=== PATIENT | female | born 1940 | race Caucasian/White ===

== ENCOUNTER 2017-05-16 10:17 | Emergency (ER) | payer MEDICARE, OTHER, BC ==
[2017-05-16 11:01] VITALS: BP 159/98
--- NOTE | 2017-05-16 11:22 | EDM.PDOC ---
ED HPI GENERAL MEDICAL PROBLEM - General Chief Complaint: Head Injury Stated Complaint: FELL, HEAD INJURY, VOMITING Time Seen by Provider: 05/16/17 10:45 Source of Information: Reports: Patient, Family History Limitations: Reports: No Limitations - History of Present Illness INITIAL COMMENTS - FREE TEXT/NARRATIVE: 77-year-old female walked out onto her back porch and there was a very thin sheet of ice that was on the porch she was unaware of and she lost her footing and slipped backwards falling onto her lower back and she whiplashed her head off of the surface of the deck. She had no loss of consciousness. Her daughter saw it happen so went out to help her and she also fell. She then assisted her mom up and after she got into the house she became somewhat pale, dizzy, lightheaded and confused and had some repetitive questioning. She has no significant headache but has some nausea. She is much improved but the daughter wanted her checked out. She complains of some soreness on the occiput of the scalp and nausea but no other complaints. Onset: Sudden Duration: Hour(s): (Within the last 2 hours) Severity: Moderate Associated Symptoms: Reports: Nausea/Vomiting, Other (Dizziness and mild confusion) - Related Data Allergies Allergy/AdvReac Type Severity Reaction Status Date / Time propoxyphene HCl Allergy Nausea Verified 02/21/16 12:10 [From [place]] Home Meds: Home Meds Aspirin [Low Dose Aspirin EC] 81 mg PO DAILY 06/04/15 [History] Docusate Sodium 100 mg PO DAILY 06/04/15 [History] L.acidoph,Paracasei, B.lactis [Probiotic] 1 each PO DAILY 06/04/15 [History] Levothyroxine Sodium [Synthroid] 100 mcg PO DAILY 06/04/15 [History] Lisinopril 10 mg PO DAILY 06/04/15 [History] Multivitamin with Minerals [Multiple Vitamin] 1 tab PO DAILY 06/04/15 [History] Omeprazole 20 mg PO DAILY 06/04/15 [History] Oxyquinoline/Sod.Lauryl Sulf [[place] Jelly] 1 applic VAG .TWICE WEEKLY [History] Polyethylene Glycol 3350 [MiraLAX] 17 gm PO DAILY PRN 06/04/15 [History] Propylene Glycol/Peg 400 [Systane 0.3-0.4% Eye Drops] 1 drop EYEBOTH DAILY PRN 06/04/15 [History] Simvastatin [Zocor] 20 mg PO BEDTIME 06/04/15 [History] Persavison 2 2 tab PO DAILY 06/05/15 [History] Psyllium with Sucrose [Metamucil] 1 each PO DAILY 06/05/15 [History] Past Medical History HEENT History: Reports: Cataract, Macular Degeneration Cardiovascular History: Reports: High Cholesterol, Hypertension Gastrointestinal History: Reports: Other (See Below) Other Gastrointestinal History: exploratory lap Genitourinary History: Reports: Other (See Below) Other Genitourinary History: elevated kidney functions, renal tumor benign CAT BREEDER History: Reports: Other (See Below) Other OB/BYN History: Pessery Endocrine/Metabolic History: Reports: Hyperthyroidism Hematologic History: Reports: Blood Transfusion(s) - Infectious Disease History Infectious Disease History: Reports: Chicken Pox, Measles, Mumps - Past Surgical History GI Surgical History: Reports: Other (See Below) Other GI Surgeries/Procedures: exploritory lap Female Surgical History: Reports: Other (See Below) Other Female Surgeries/Procedures: cyst removed from kidney Endocrine Surgical History: Reports: Thyroidectomy Social & Family History - Tobacco Use Smoking Status *Q: Never Smoker Second Hand Smoke Exposure: No - Caffeine Use Caffeine Use: Reports: None - Recreational Drug Use Recreational Drug Use: No ED ROS GENERAL - Review of Systems Review Of Systems: See Below Constitutional: Reports: Malaise. Denies: Fever, Chills HEENT: Reports: No Symptoms Respiratory: Denies: Shortness of Breath, Cough Cardiovascular: Denies: Chest Pain GI/Abdominal: Reports: Nausea, Vomiting. Denies: Abdominal Pain : Reports: No Symptoms Musculoskeletal: Reports: Other (Some mild buttock discomfort from where she fell). Denies: Neck Pain, Back Pain Skin: Reports: No Symptoms Neurological: Reports: Dizziness. Denies: Headache ED EXAM, HEAD INJURY - Physical Exam Exam: See Below Exam Limited By: No Limitations General Appearance: Alert, No Apparent Distress Head: Other (Slight swelling and redness is present on the occiput of the scalp. No significant bruising or laceration, no abrasion. It is tender to palpation) Eyes: Bilateral Eye: EOMI, PERRL Throat/Mouth: Normal Inspection Neck: Non-Tender, Full Range of Motion Respiratory: No Respiratory Distress Neurologic: No Motor/Sensory Deficits, Alert, Normal Mood/Affect, Oriented x 3 Skin: Other (Slight erythema to the posterior scalp no other findings) - Elder Coma Score Best Eye Response ([place]): (4) Open Spontaneously Best Verbal Response (Elder): (5) Oriented Best Motor Response (Elder): (6) Obeys Commands Course - Vital Signs Last Recorded V/S: Last Vital Signs Temp 95.5 F 05/16/17 10:30 Pulse 82 05/16/17 10:30 Resp 18 05/16/17 10:30 BP 159/98 H 05/16/17 10:30 Pulse Ox 97 05/16/17 10:30 - Orders/Labs/Meds Orders: Active Orders 24 hr Category Date Time Status Head wo Cont [CT] Stat Exams 05/16/17 10:46 Taken - Re-Assessments/Exams Free Text/Narrative Re-Assessment/Exam: 05/16/17 11:22 Because of the obvious confusion and repetitive questioning, and the persistent nausea and vomiting along with a significant head injury a 77-year-old, a CT of the head without contrast was obtained. 05/16/17 11:[address] was normal. Patient was still somewhat nauseous so she was discharged with 5 sublingual Zofran doses to take as needed every 4-6 hours for persistent nausea. She'll return if she develops neurologic changes or deficits which we discussed. She can take Tylenol or ibuprofen as needed for headache or musculoskeletal complaints. Departure - Departure Time of Disposition: 12:09 Disposition: Home, Self-Care 01 Condition: Good Clinical Impression: Concussion with no loss of consciousness - Discharge Information Instructions: Head Injury, Adult, [id number] Referrals: Marcial Owens PA-C [Primary Care Provider] - Forms: ED Department Discharge Care Plan Goals: Use Zofran as needed for persistent nausea. Ice to sore areas for the next 1-2 days may help, along with Tylenol and ibuprofen or naproxen for discomfort. Recheck anytime if worsening or concerns as discussed. - My Orders Last 24 Hours: My Active Orders 05/16/17 10:46 Head wo Cont [CT] Stat - Assessment/Plan Last 24 Hours: My Active Orders 05/16/17 10:46 Head wo Cont [CT] Stat
== END 2017-05-16 12:09 | disposition home or self-care (01) ==
LOC: JP.ED 10:17
DX: S06.0X0A Concussion without loss of consciousness, initial encounter (principal); I10 Essential (primary) hypertension; E78.00 Pure hypercholesterolemia, unspecified; E05.90 Thyrotoxicosis, unspecified without thyrotoxic crisis or storm; Z79.899 Other long term (current) drug therapy; Z88.6 Allergy status to analgesic agent; W01.198A Fall on same level from slipping, tripping and stumbling with subsequent striking against other object, initial encounter
CPT/HCPCS: 70450; 99284; 99284-25

== ENCOUNTER 2020-01-25 06:24 | Day surgery (SDC) | payer BC, MEDICARE, OTHER ==
[2020-01-25] MEDS ORDERED: Sodium Chloride 0.9% 10 ML Syringe FLUSH PRN ×3 (07:30)
[2020-01-25 08:38] VITALS: BP 162/90; PULSE 84
--- NOTE | 2020-01-25 11:31 | OR ---
DATE OF PROCEDURE: 01/25/2020 SURGEON: Yumiko Villarreal MD POSTOPERATIVE CARE: Postoperative care will be provided mainly at the [address] [place] [address] [facility] in conjunction with [facility]. PREOPERATIVE DIAGNOSIS: Cataract, right eye. POSTOPERATIVE DIAGNOSIS: Cataract, right eye. PROCEDURE: Phacoemulsification with intraocular lens placement, right eye. ANESTHESIA: Topical and intracameral. ESTIMATED BLOOD LOSS: Minimal. COMPLICATIONS: None. PATHOLOGY SPECIMENS: None. SURGICAL FINDINGS: None. INDICATION FOR PROCEDURE: The patient is an 79-year-old female with history of a visually significant cataract in the right eye, which interfered with activities of daily living. This consisted of a nuclear sclerosis cataract. Following careful discussion of the risks, benefits and alternatives to cataract extraction with intraocular lens placement including blindness and , the patient elected to proceed, and informed, written consent was obtained prior to the procedure. DESCRIPTION OF THE PROCEDURE: The patient was previously identified, and a rico placed above the right eye. All sources, including the patient, indicated that the right eye was the correct eye. The patient was subsequently taken to the operating room where standard monitors were applied. The patient was then prepped and draped in the usual sterile fashion for ophthalmic surgery. Attention was first directed at the 12 o'clock position where a paracentesis port was fashioned. Shugar solution followed by Viscoat was instilled into the eye. Attention was then directed to the 8:30 position where a triplanar incision was made in a near-clear manner using a keratome. A continuous capsulorrhexis was then made using a combination of the cystotome and Utrata forceps. Hydrodissection was achieved using a balanced salt solution, and the lens rotated nicely. Phacoemulsification was then done using a modified [id number] technique without complication. Phaco time was 5.56 CDE. The remaining cortex was removed using the irrigation/aspiration handpiece. Provisc was then instilled into the eye. A Technis lens, model [id number], at 20.0 diopters was then placed in the capsular bag using an Chical injector. The remaining viscoelastic was removed using the irrigation/aspiration forceps. All wounds were then checked and found to be watertight. The lid speculum and drapes were removed. Maxitrol ointment was placed in the patient's right eye, and the eye was shielded. The patient tolerated the procedure well. The patient was instructed to follow up tomorrow. All needle and sponge counts were correct at the end of the procedure. Yumiko Villarreal MD /[id number]
== END 2020-01-25 08:50 | disposition home or self-care (01) ==
LOC: JP.SDS 06:24
PROVIDERS: ATTEND Ophthalmology
DX: H25.11 Age-related nuclear cataract, right eye (principal); I10 Essential (primary) hypertension; E66.9 Obesity, unspecified; Z68.29 Body mass index [BMI] 29.0-29.9, adult
CPT/HCPCS: 66984; V2632

== ENCOUNTER 2020-02-22 07:51 | Day surgery (SDC) | payer MEDICARE ==
[2020-02-22 08:24] VITALS: PULSE 86
[2020-02-22] MEDS ORDERED: Sodium Chloride 0.9% 10 ML Syringe FLUSH SCH (08:30)
[2020-02-22 09:21] VITALS: BP 146/82
--- NOTE | 2020-02-22 16:04 | OR ---
DATE OF PROCEDURE: 02/22/2020 SURGEON: Yumiko Villarreal MD POSTOPERATIVE CARE: Postoperative care will be provided mainly at the [address] [place] [address] [facility] in conjunction with [facility]. PREOPERATIVE DIAGNOSIS: Cataract, left eye. POSTOPERATIVE DIAGNOSIS: Cataract, left eye. PROCEDURE: Phacoemulsification with intraocular lens placement, left eye. ANESTHESIA: Topical and intracameral. ESTIMATED BLOOD LOSS: Minimal. COMPLICATIONS: None. PATHOLOGY SPECIMENS: None. SURGICAL FINDINGS: None. INDICATION FOR PROCEDURE: The patient is an 80-year-old female with history of a visually significant cataract in the left eye, which interfered with activities of daily living. This consisted of a nuclear sclerosis cataract. Following careful discussion of the risks, benefits and alternatives to cataract extraction with intraocular lens placement including blindness and , the patient elected to proceed, and informed, written consent was obtained prior to the procedure. DESCRIPTION OF THE PROCEDURE: The patient was previously identified, and a rico placed above the left eye. All sources, including the patient, indicated that the left eye was the correct eye. The patient was subsequently taken to the operating room where standard monitors were applied. The patient was then prepped and draped in the usual sterile fashion for ophthalmic surgery. Attention was first directed at the 12 o'clock position where a paracentesis port was fashioned. Shugar solution followed by Viscoat was instilled into the eye. Attention was then directed to the 8:30 position where a triplanar incision was made in a near-clear manner using a keratome. A continuous capsulorrhexis was then made using a combination of the cystotome and Utrata forceps. Hydrodissection was achieved using a balanced salt solution, and the lens rotated nicely. Phacoemulsification was then done using a modified [id number] technique without complication. Phaco time was 5.64 CDE. The remaining cortex was removed using the irrigation/aspiration handpiece. Provisc was then instilled into the eye. A Technis lens, model [id number], at 20.0 diopters was then placed in the capsular bag using an [place] injector. The remaining viscoelastic was removed using the irrigation/aspiration forceps. All wounds were then checked and found to be watertight. The lid speculum and drapes were removed. Maxitrol ointment was placed in the patient's left eye, and the eye was shielded. The patient tolerated the procedure well. The patient was instructed to follow up tomorrow. All needle and sponge counts were correct at the end of the procedure. Yumiko Villarreal MD /[id number]
== END 2020-02-22 09:33 | disposition home or self-care (01) ==
LOC: JP.SDS 07:51
PROVIDERS: ATTEND Ophthalmology
DX: H25.12 Age-related nuclear cataract, left eye (principal)
CPT/HCPCS: 66984; V2632

== ENCOUNTER 2021-12-18 21:49 | Emergency (ER) | payer MEDICARE ==
[2021-12-18 22:23] VITALS: PULSE 76
[2021-12-18] MEDS ORDERED: Sodium Chloride 0.9% 1,000 ML IV SCH (22:30)
[2021-12-18] MEDS ORDERED: HYDROmorphone 0.5 MG/0.5 ML Syringe IVPUSH ONE (23:23)
[2021-12-18 23:42] VITALS: BP 105/62
== END 2021-12-19 00:05 | disposition home or self-care (01) ==
LOC: JP.ED 21:49
DX: S42.212A Unspecified displaced fracture of surgical neck of left humerus, initial encounter for closed fracture (principal); E78.00 Pure hypercholesterolemia, unspecified; K21.9 Gastro-esophageal reflux disease without esophagitis; I10 Essential (primary) hypertension; E05.90 Thyrotoxicosis, unspecified without thyrotoxic crisis or storm; Z79.899 Other long term (current) drug therapy; Z79.82 Long term (current) use of aspirin; Z88.5 Allergy status to narcotic agent; Z20.822 Contact with and (suspected) exposure to COVID-19; W18.39XA Other fall on same level, initial encounter
CPT/HCPCS: 36415; 73030-26-LT; 73030-LT; 80053; 85025; 85610; 85730; 93005; 93010; 96374; 99283; 99284-25; J1170; J7030; U0002